=== PATIENT | male | born 1995 | race Caucasian/White ===

== ENCOUNTER 2024-12-08 10:35 | Emergency (ER) | payer OTHER, SELFPAY ==
[2024-12-08 10:47] VITALS: BP 147/81; PULSE 62; RESP 16; TEMP 36.8; O2SAT 98
--- NOTE | 2024-12-08 11:15 | ED.EYEPROB ---
HPI - Eye Problem General Chief complaint: Eye Problems Stated complaint: EYE HIT BY ROCK [employer]. SWELLING AND PAIN Time Seen by Provider: 12/08/24 10:45 Source: patient Mode of arrival: ambulatory Limitations: no limitations History of Present Illness HPI Narrative: This is a 29 year old male that presents to the ER for right eye discomfort. Reports yesterday he was weed eating. He thinks maybe a rock or blade of grass hit him it the eye. Reports later last night his eye started to bother him. Reports the eye is watery, red, feels like there is something in it. Denies vision changes, pain with ROMs. Related Data Allergies Allergy/AdvReac Type Severity Reaction Status Date / Time Penicillins Allergy Unknown rash Verified 12/08/24 10:46 Review of Systems Review of Systems: All systems reviewed & are unremarkable except as noted in HPI and below PMFSH Past Medical History Medical History (Updated 12/08/24 @ 12:13 by Edith Vyas PA-C) No active medical problems Exam Narrative: GENERAL: Well-appearing, well-nourished, and in no acute distress. HEAD: Normocephalic, atraumatic. EYES: PERRLA and EOMI. Right eye conjunctival injection and tearing. Visual acuity on the right 20/30, on the left 20/20. Eye pressure 16 on the right, 20 on the left. Fluorescein stain uptake in the right eye with a small corneal abrasion. No foreign bodies EXTREMITIES: Normal range of motion. No edema. SKIN: Warm, dry, no rash. NEURO: No focal deficits. Alert and oriented x3. PSYCH: Normal mood and affect Course Vital Signs Vital signs: Vital Signs Temperature 98.2 F 12/08/24 10:47 Pulse Rate 62 12/08/24 10:47 Respiratory Rate 16 12/08/24 10:47 Blood Pressure 147/81 H 12/08/24 10:47 Pulse Oximetry 98 12/08/24 10:47 Oxygen Delivery Room Air 12/08/24 10:47 Temperature 98.2 F 12/08/24 10:47 Pulse Rate 62 12/08/24 10:47 Respiratory Rate 16 12/08/24 10:47 Blood Pressure 147/81 H 12/08/24 10:47 Pulse Oximetry 98 12/08/24 10:47 Oxygen Delivery Room Air 12/08/24 10:47 MDM - Eye Problem MDM Narrative Medical decision making narrative: Patient presents to the emergency department after an injury to the eye yesterday with tearing, conjunctival injection, foreign body sensation. Normal eye pressures. No foreign bodies. He is afebrile and nontoxic appearing. No abnormal drainage. Visual acuity 20/30 on the right, 20/20 left. Small corneal abrasion noted. Patient will be started on prophylactic antibiotics. Instructed to follow-up with an administrative services manager. He was given warnings to return to the ER Differential Diagnosis Differential diagnosis: Likely corneal abrasion and conjunctivitis Critical Care Time Critical Care Time Critical Care Time: No Discharge Plan Discharge Clinical Impression: Corneal abrasion Qualifiers: Encounter type: initial encounter Laterality: right Qualified Code(s): S05.01XA - Injury of conjunctiva and corneal abrasion without foreign body, right eye, initial encounter Patient Disposition: Home Condition: Stable Instructions: Antibiotic Form, Corneal Abrasion (ED) Additional Instructions: Return to the emergency department if you experience fevers, redness and swelling around your eye, abnormal drainage from the eye, visual changes, or any other symptoms that are concerning to you Instill antibiotic eyedrops as prescribed Follow-up with ophthalmology. [facility] Patient Language: Venezuelan Prescriptions: New ofloxacin [Ocuflox] 0.3 % drops 1 drp RIGHT EYE QID 5 Days Qty: 10 0RF Follow-up/Referrals: PHYSICIAN NOT ON STAFF,NONSTAFF [Non-Staff] - Stand Alone Forms: Work/School Release IP
[2024-12-08 11:56] VITALS: O2SAT 98
[2024-12-08] MEDS: TETRACAINE HCL 0.5% OPHTH SOLN 4 ML BTL 1 DROP (11:57)
[2024-12-08] MEDS: DACRIOSE EYE IRRIGATION 118 ML BOTTLE (11:57)
[2024-12-08 12:00] VITALS: O2SAT 97
[2024-12-08 12:02] VITALS: BP 128/92; O2SAT 98
[2024-12-08 12:15] VITALS: O2SAT 97
[2024-12-08 12:20] VITALS: BP 116/80
== END 2024-12-08 12:21 | disposition home or self-care (01) ==
PROVIDERS: Emergency Provider Physician Assistant
DX: S05.01XA Injury of conjunctiva and corneal abrasion without foreign body, right eye, initial encounter (principal); X58.XXXA Exposure to other specified factors, initial encounter
CPT/HCPCS: 99283; A9270